=== PATIENT | male | born 1950 | race Caucasian/White ===

== ENCOUNTER 2016-10-22 20:58 | Emergency (ER) | payer MEDICARE ==
[2016-10-22 21:24] LABS: BASOPHIL 0.4 % (0-2); EOSINOPHIL 2.2 % (0-7); HGB 14.7 g/dl (13.2-18.0); LYMPHOCYTE 20.3 % (15-48); MCHC 34.2 g/dL (32.0-36.0); MCV 87.8 fL (78.0-100.0); MONOCYTE 7.7 % (0-12); MPV 12.3 fL (6.0-9.5); NEUTROPHIL 69.4 % (41-80); PLT 143 K/uL (150-400); RDW 12.9 % (11.5-14.0); WBC 8.3 K/uL (4.0-10.5)
[2016-10-22 21:32] LABS: INR 0.91 (0.9-1.2); PROTHROMBIN TIME 11.9 SECONDS (11.7-14.0); PTT 23.6 SECONDS (23.2-31.4)
[2016-10-22 21:34] LABS: D-DIMER 0.32 ug/mLFEU (0.00-0.41)
[2016-10-22 21:42] LABS: ALBUMIN 4.4 g/dL (3.4-4.8); BILIRUBIN - TOTAL 0.2 mg/dL (0.1-1.0); CKMB 2.08 ng/mL (0.97-4.94); CREATININE 0.8 mg/dL (0.7-1.2); GLOBULIN (CALCULATION) 2.5 g/dL (2.2-4.2); MAGNESIUM 2.08 mg/dL (1.40-2.10); MYOGLOBIN 39 ng/mL (26-65); POTASSIUM 4.3 mmol/L (3.5-5.1); PRO-BNP 88 pg/mL (0-125); TOTAL PROTEIN 6.9 g/dL (6.4-8.3); TROPONIN T < 0.010 ng/mL
== END 2016-10-22 21:38 | disposition other institution (70) ==
LOC: FER 20:58
PROVIDERS: Emergency Medicine Emergency Medical Services
DX: I21.19 ST elevation (STEMI) myocardial infarction involving other coronary artery of inferior wall (principal); E11.9 Type 2 diabetes mellitus without complications; F17.210 Nicotine dependence, cigarettes, uncomplicated; Z88.8 Allergy status to other drugs, medicaments and biological substances; Z79.84 Long term (current) use of oral hypoglycemic drugs
CPT/HCPCS: 36415; 71010; 80053; 82550; 82553; 83690; 83735; 83874; 83880; 84484; 85025; 85379; 85610; 85730; 93005; J1644

== ENCOUNTER → 2020-12-10 | Day surgery (SDC) | payer MEDICARE ==
[~2020-12-10] VITALS: Ht 167.6 cm; Wt 64.9 kg
[~2020-12-10] MED LIST: ASPIRIN EC81 MG PO; GABAPENTIN600 MG PO; METFORMIN HCL500 MG PO; MICRONASE5 MG PO; NORCO 5-325 TA1 EACH PO; REMERON15 MG PO; ZOFRAN8 MG PO
[2020-12-10 08:43] LABS: HCT 36.9 % (42.0-52.0); HGB 11.6 g/dl (13.2-18.0); MCH 29.8 pg (25.0-31.0); MCHC 31.4 g/dL (32.0-36.0); MCV 94.9 fL (78.0-100.0); MPV 12.2 fL (6.0-9.5); RBC 3.89 M/uL (4.70-6.00); RDW 14.9 % (11.5-14.0)
[2020-12-10 08:59] LABS: ALBUMIN 3.2 g/dL (3.4-5.0); BILIRUBIN - TOTAL 0.3 mg/dL (0.2-1.0); BUN/CREAT RATIO (CALC) 17.6 RATIO; CREATININE 0.74 mg/dL (0.67-1.17); GLOBULIN (CALCULATION) 3.8 g/dL; POTASSIUM 4.1 mmol/L (3.5-5.1)
== END | disposition home or self-care (01) ==
LOC: FAS 07:43
PROVIDERS: Surgery
DX: I87.2 Venous insufficiency (chronic) (peripheral) (principal); K80.20 Calculus of gallbladder without cholecystitis without obstruction; I10 Essential (primary) hypertension; I25.10 Atherosclerotic heart disease of native coronary artery without angina pectoris; I25.5 Ischemic cardiomyopathy; J44.9 Chronic obstructive pulmonary disease, unspecified; E78.5 Hyperlipidemia, unspecified; F17.210 Nicotine dependence, cigarettes, uncomplicated; E11.9 Type 2 diabetes mellitus without complications; Z20.822 Contact with and (suspected) exposure to COVID-19; I25.2 Old myocardial infarction; Z88.8 Allergy status to other drugs, medicaments and biological substances; Z79.82 Long term (current) use of aspirin; Z79.84 Long term (current) use of oral hypoglycemic drugs; Z79.899 Other long term (current) drug therapy
CPT/HCPCS: 36415; 80053; J2250; J2704; J3010; J7120; U0002